=== PATIENT | male | born 1980 | race African-American/Black ===

== ENCOUNTER 2024-10-23 23:46 | Emergency (ER) | payer OTHER ==
[~2024-10-23] VITALS: Ht 177.8 cm; Wt 81.6 kg
[2024-10-24 00:07] VITALS: BP 151/97; TEMP 98; O2SAT 96
== END 2024-10-24 01:26 | disposition home or self-care (01) ==
LOC: ER 23:49 → EDBD 23:49 → ER 10-24 01:26
DX: F19.10 Other psychoactive substance abuse, uncomplicated (principal); F17.210 Nicotine dependence, cigarettes, uncomplicated